=== PATIENT | male | born 1960 | race Caucasian/White ===

== ENCOUNTER → 2020-04-14 11:02 | Outpatient (CLI) | payer BC, SELFPAY ==
--- NOTE | 2020-04-14 11:04 | DI.RAD.S_ITS ---
PROCEDURE: XR CHEST 2V INDICATIONS: sob TECHNIQUE: 2 views of the chest were acquired. COMPARISON: None. FINDINGS: Surgical changes and devices: None. Lungs and pleura: Lungs are clear. No pleural effusions or pneumothorax. Mediastinum: Mediastinal contours are normal. Heart size is normal. Bones and chest wall: No suspicious bony abnormalities. Soft tissues appear unremarkable. IMPRESSION: No acute cardiopulmonary disease. Dictated by: Canelo Thomason [facility] Interpreted: Annemarie Mercedes MD on 04/14/2020 at 11:20 Approved by: Annemarie Mercedes M.D. on 04/14/2020 at 14:45
--- NOTE | 2020-04-14 11:04 | DI.RAD.S_ITS ---
PROCEDURE: XR KNEE RT 3V INDICATIONS: right knee pain TECHNIQUE: 3 views of the knee were acquired. COMPARISON: None. FINDINGS: Bones: No fractures or dislocations. No suspicious bony lesions. Mild narrowing of the medial femoral tibial joint and tricompartmental periarticular osteophyte formation. Soft tissues: Small joint effusion. No suspicious soft tissue calcifications. 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 Dictated by: Canelo Thomason [facility] Interpreted: Annemarie Mercedes MD on 04/14/2020 at 11:25 Approved by: Annemarie Mercedes M.D. on 04/14/2020 at 14:46
== END ==
PROVIDERS: PCP Internal Medicine; Referring Provider Internal Medicine; Visit Provider Internal Medicine
DX: R06.02 Shortness of breath (principal); M25.561 Pain in right knee; M17.11 Unilateral primary osteoarthritis, right knee
CPT/HCPCS: 71046; 73562

== ENCOUNTER → 2020-04-27 07:23 | Outpatient (CLI) | payer BC, SELFPAY ==
[2020-05-17 16:35] LABS: COVID19 -Nasal RAPID Negative (Negative)
== END ==
PROVIDERS: PCP Internal Medicine; Referring Provider Internal Medicine; Visit Provider Internal Medicine
DX: Z11.59 Encounter for screening for other viral diseases (principal)
CPT/HCPCS: 87635

== ENCOUNTER → 2020-04-28 06:39 | Outpatient (CLI) | payer BC, SELFPAY ==
--- NOTE | 2020-05-07 10:37 | PM.PFT.1 ---
Pulmonary Function Test Referral & Results Date Patient Seen: 04/28/20 Requesting provider: Jack Lee Results: The spirometry demonstrates an FVC of 3.75 L which is 91% of predicted. The FEV1 was measured at 2.96 L which is 95% of predicted. The FEV1/FVC ratio was 79 which is 104% of predicted. Following the administration of bronchodilator there was no appreciable change to above normal numbers. Lung volumes show an SVC of 3.76 L which is 90% of predicted. The diffusing capacity was measured at 25.86 which is 95% of predicted. The maximum voluntary ventilation was normal Interpretation: This study demonstrates normal pulmonary function
== END ==
PROVIDERS: PCP Internal Medicine; Referring Provider Internal Medicine; Visit Provider Internal Medicine
DX: J98.8 Other specified respiratory disorders (principal); R06.02 Shortness of breath; Z87.891 Personal history of nicotine dependence
CPT/HCPCS: 94060; 94726; 94729

== ENCOUNTER → 2020-09-15 09:56 | Outpatient (CLI) | payer BC, SELFPAY ==
[2020-09-15] MEDS: COVID-19 VACC, Ad26(JANSSEN)/PF 0.5 ML IM (10:08)
== END ==
PROVIDERS: PCP Internal Medicine; Visit Provider Internal Medicine
DX: Z23 Encounter for immunization (principal)
CPT/HCPCS: 0031A; 91303

== ENCOUNTER → 2021-01-25 07:35 | Outpatient (CLI) | payer BC, SELFPAY ==
--- NOTE | 2021-01-25 | DI.ECHO.S_ITS ---
[facility]---------+ [facility] +---------+ : : [address] : [place] : : : : [id number] : : : : Phone: [phone]+ Echocardiogram Report + + :Name: NIMA CHAMBERS Study Date: 01/25/2021 Height: 66 in : :[facility] ReadingLocation: Weight: 252 lb : : Gender: Male BSA: 2.2 m2 : :: 1960 Age: 60 yrs BP: 168/111 mmHg: :Reason For Study: Cardiomyopathy : :Ordering Physician: TONE, : :KRISSY Callahan Performed By: Neymar Tineo : :Referring: KRISSY WAYNE : + + Interpretation Summary The left ventricle is normal in size and wall thickness. Left ventricular systolic function is borderline reduced. The ejection fraction is estimated to be 45-50%. There is mild global hypokinesis of the left ventricle. Diastolic parameters suggest a relaxation abnormality of the left ventricle, consistent with probable normal filling pressures. The right ventricular systolic pressure is estimated to be at least 23 mmHg based on an estimated right atrial pressure of 3 mm Hg. Both atria are normal in size. There is no significant valvular heart disease. The aortic root is normal size. Procedure: A two-dimensional transthoracic echocardiogram with color flow and Doppler was performed. The study quality was technically adequate. There is no prior echocardiogram noted for this patient. The patient was in sinus rhythm with heart rates between 53-71 bpm during the exam. Left Ventricle: The left ventricle is normal in size and wall thickness. Left ventricular systolic function is borderline reduced. The ejection fraction is estimated to be 45-50%. There is mild global hypokinesis of the left ventricle. Diastolic parameters suggest a relaxation abnormality of the left ventricle, consistent with probable normal filling pressures. Right Ventricle: The right ventricle is normal in size and function. Atria: Both atria are normal in size. There is no Doppler evidence for an interatrial shunt. Mitral Valve: The mitral valve is normal in structure and function. There is trace mitral regurgitation. Aortic Valve: The aortic valve is normal in structure and function. No aortic regurgitation is present. Tricuspid Valve: The tricuspid valve is normal in structure and function. There is mild tricuspid regurgitation. The right ventricular systolic pressure is estimated to be at least 23 mmHg based on an estimated right atrial pressure of 3 mm Hg. Pulmonic Valve: The pulmonic valve is normal in structure and function. There is a trace or physiologic amount of pulmonic regurgitation. There is no significant valvular heart disease. Great Vessels: The aortic root is normal size. The dimensions of the ascending aorta are normal. The IVC is of normal diameter and collapses greater than 50% with a sniff. This suggests a low right atrial pressure of 3 mm Hg. Pericardium/ Pleura There is no pericardial effusion. There is no pleural effusion. MMode/2D Measurements & Calculations LVIDd: 4.7 cm LVOT diam: 2.1 cm LVIDs: 3.7 cm Ao root diam: 3.2 cm FS: 21.6 % asc Aorta Diam: 3.3 cm IVSd: 1.1 cm LVPWd: 0.98 cm LV winslow. diameter/BSA (cm/m^2): 2.1 LV sys. diameter/BSA (cm/m^2): 1.7 LA dimension: 3.9 cm RA long axis: 4.9 cm LA A2 area: 18.9 cm2 LA A4 area: 14.2 cm2 LA length (vol): 5.9 cm LA vol: 38.5 ml LA vol index: 17.5 ml/m2 LVLs ap4: 8.2 cm LVLd ap2: 8.3 cm LVLs ap2: 8.1 cm TAPSE_phl: 2.2 cm Doppler Measurements & Calculations Ao V2 max: 96.1 cm/sec LVOT Max Isael: 85.5 cm/sec Ao V2 mean: 68.2 cm/sec LV V1 max P.9 mmHg Ao max P.0 mmHg LV V1 VTI: 19.8 cm Ao mean P.0 mmHg GENTRY(I,D): 3.4 cm2 Ao V2 VTI: 20.4 cm GENTRY(V,D): 3.1 cm2 sev ratio: 0.97 GENTRY indexed to BSA (cm^2/m^2): 1.5 MV E max isael: 82.7 cm/sec TR max isael: 225.0 cm/sec MV A max isael: 87.4 cm/sec TR max P.2 mmHg MV E/A: 0.95 PA V2 max: 97.6 cm/sec Med Peak E' Isael: 6.0 cm/sec PA V2 mean: 70.6 cm/sec E/E' med: 13.8 PA mean P.0 mmHg Lat Peak E' Isael: 6.3 cm/sec PA pr(Accel): 27.7 mmHg E/E' lat: 13.1 E/e' average: 13.5 MV dec time: 0.22 sec SV(LVOT): 68.6 ml AV VR_phl: 0.89 GENTRY(VTI)/BSA_phl: 1.5 MV P1/2t-pr_phl: 64.0 msec Reading Physician:05:41 PM
== END ==
PROVIDERS: PCP Internal Medicine; Referring Provider Internal Medicine; Visit Provider Internal Medicine
DX: I07.1 Rheumatic tricuspid insufficiency (principal); I42.9 Cardiomyopathy, unspecified
CPT/HCPCS: 93306